=== PATIENT | female | born 1990 ===

== ENCOUNTER 2024-05-22 14:30 | Inpatient (IN) | payer OTHER ==
[~2024-05-22] VITALS: Ht 180.3 cm; Wt 112.5 kg
[2024-05-27] VITALS (9 sets, daily range): BP systolic 104–148; BP diastolic 65–82
[2024-05-27] MEDS ORDERED: RINGERS SOLUTION,LACTATED 1,000 ML IV SCH (06:15)
[2024-05-27] MEDS ORDERED: AMPICILLIN SODIUM 2,000 MG VIAL IV ONE (06:15)
[2024-05-27] MEDS ORDERED: OXYTOCIN 20 UNITS/500ML RL PIGGYBAG IV ONE (07:10)
[2024-05-27] MEDS ORDERED: OXYTOCIN 500 ML IV SCH (07:15)
[2024-05-27] MEDS ORDERED: AMPICILLIN SODIUM 2,000 MG VIAL ONE (07:19)
[2024-05-27 08:12] LABS: HEMATOCRIT 35.3 % (36.0-45.00); HEMOGLOBIN 12.3 g/dL (12.0-15.00); MEAN CELL VOLUME 96.5 fL (80.00-100.00); MEAN CORPUSCULAR HEMOGLOBIN 33.7 pg (27.00-32.0); MEAN CORPUSCULAR HGB CONC 34.9 g/dl (32.0-36.0); PLATELET COUNT 245 K/uL (150-450); RED BLOOD COUNT 3.66 M/uL (4.00-6.00); RED CELL DISTRIBUTION WIDTH 13.2 % (11.5-14.5)
[2024-05-27 08:32] LABS: INR < 0.93; PARTIAL THROMBOPLASTIN TIME 24.8 SECONDS (22.0-34.0)
[2024-05-27 09:24] LABS: ALBUMIN 2.6 gm/dL (3.4-5.0); BILIRUBIN TOTAL 0.46 mg/dL (0.3-1.2); CALCIUM 9.2 mg/dL (8.5-10.1); CREATININE SERUM 0.61 mg/dL (0.55-1.02); GFR 112.27; GLOBULINA 3.3 G/DL (2.4-3.5); POTASSIUM 4.12 mEq/L (3.5-5.1); TOTAL PROTEIN 5.9 gm/dL (6.4-8.2)
[2024-05-27] MEDS ORDERED: PRENATAL CAPLE1 EAC1 PO (09:48)
[2024-05-27] MEDS ORDERED: PEPCID AC20 MG PO (09:49)
[2024-05-27] MEDS ORDERED: AMPICILLIN SODIUM 1,000 MG VIAL IV SCH (12:00)
[2024-05-27] MEDS ORDERED: MORPHINE SULFATE 4 MG/ML VIAL IV ONE (13:30)
[2024-05-27] MEDS ORDERED: MORPHINE SULFATE 4 MG/ML CARTRIDGE IV STA (15:27)
[2024-05-27] MEDS ORDERED: LIDOCAINE HCL 1% 10ML VIAL ONE ×3 (15:35→19:01)
[2024-05-27] MEDS ORDERED: OXYTOCIN 20 UNITS/1000ML RL PIGGYBAG IV ONE ×2 (15:35→15:38)
[2024-05-27] MEDS ORDERED: ERYTHROMYCIN BASE OPHT 1GM EACH TUBE OP ONE ×3 (15:35→21:45)
[2024-05-27] MEDS ORDERED: CHLORHEXIDINE GLUCONATE 120 ML BOTTLE TOP ONE ×3 (15:35→21:45)
[2024-05-27] MEDS ORDERED: MORPHINE SULFATE 2 MG/ML CARTRIDGE IV ONE (15:40)
[2024-05-27] MEDS ORDERED: NALOXONE HCL 0.4 MG/ML AMPUL ONE (17:01)
[2024-05-27] MEDS ORDERED: METHYLERGONOVINE MALEATE 0.2 MG/ML AMPUL ONE (19:33)
[2024-05-27] MEDS ORDERED: CARBOPROST TROMETHAMINE 250 MCG/ML AMPUL IM ONE (19:45)
[2024-05-27] MEDS ORDERED: DOCUSATE SODIUM 100MG CAP PO SCH (20:22)
[2024-05-27] MEDS ORDERED: OXYTOCIN 1,000 ML IV SCH (20:30)
[2024-05-27] MEDS ORDERED: OxyCODONE HCL/APAP UD (PERCOCET) PO PRN (20:30)
[2024-05-27] MEDS ORDERED: IBUprofen 400 MG TABLET PO PRN (20:30)
[2024-05-27] MEDS ORDERED: CARBOPROST TROMETHAMINE 250 MCG/ML AMPUL IM STA (21:30)
[2024-05-27] MEDS ORDERED: METHYLERGONOVINE MALEATE 0.2 MG/ML AMPUL IM STA (21:30)
[2024-05-27] MEDS ORDERED: LIDOCAINE HCL 1% 10ML VIAL IJ ONE ×2 (21:45)
[2024-05-27] MEDS ORDERED: NALOXONE HCL 0.4 MG/ML AMPUL IM ONE (21:45)
[2024-05-28 00:50] VITALS: BP 126/80
[2024-05-28 04:55] LABS: HEMATOCRIT 33.4 % (36.0-45.00); HEMOGLOBIN 11.7 g/dL (12.0-15.00); MEAN CELL VOLUME 95.4 fL (80.00-100.00); MEAN CORPUSCULAR HEMOGLOBIN 33.4 pg (27.00-32.0); PLATELET COUNT 263 K/uL (150-450); RED BLOOD COUNT 3.51 M/uL (4.00-6.00); RED CELL DISTRIBUTION WIDTH 13.4 % (11.5-14.5)
[2024-05-28 08:30] VITALS: BP 135/80
[2024-05-28 16:18] VITALS: BP 111/68
[2024-05-28 16:24] VITALS: BP 111/68
[2024-05-29 01:10] VITALS: BP 126/70
[2024-05-29 08:31] VITALS: BP 138/62
== END 2024-05-29 14:07 | disposition home or self-care (01) | DRG 768 ==
LOC: LDR 05-27 05:59 → OB/GYN 05-27 20:35
PROVIDERS: Obstetrics & Gynecology; ADMIT Obstetrics & Gynecology Maternal & Fetal Medicine; ATTEND Obstetrics & Gynecology Maternal & Fetal Medicine
PROC: 10D07Z6 Extraction of Products of Conception, Vacuum, Via Natural or Artificial Opening (ICD-10-PCS; principal; 2024-05-27)
PROC: 0DQP0ZZ Repair Rectum, Open Approach (ICD-10-PCS; 2024-05-27)
PROC: 0DQR0ZZ Repair Anal Sphincter, Open Approach (ICD-10-PCS; 2024-05-27)
PROC: 0W8NXZZ Division of Female Perineum, External Approach (ICD-10-PCS; 2024-05-27)
PROC: 4A1HXCZ Monitoring of Products of Conception, Cardiac Rate, External Approach (ICD-10-PCS; 2024-05-27)
DX: O70.3 Fourth degree perineal laceration during delivery (principal); Z37.0 Single live birth; O69.81X0 Labor and delivery complicated by cord around neck, without compression, not applicable or unspecified; O66.5 Attempted application of vacuum extractor and forceps; Z3A.39 39 weeks gestation of pregnancy